=== PATIENT | female | born 1950 | race Hispanic/Latino ===

== ENCOUNTER 2018-05-01 07:49 | Day surgery (SDC) | payer MEDICARE, OTHER ==
[2018-03-06 12:36] VITALS: PULSE 69; BMI 36.8
--- NOTE | 2018-05-01 10:13 | CP.SDSHP ---
Same Day Surgery H & P - History Proposed Procedure: US guided paracentesis Pre-Op Diagnosis: Ascites, cirrhosis - Allergies Allergies: Allergies No Known Allergies Allergy (Verified 03/06/18 13:35) - Physical Exam Vital Signs: Vital Signs 05/01/18 08:19 Temperature 97.4 F L Pulse Rate 105 H Respiratory 20 Rate Blood Pressure 138/80 O2 Sat by Pulse 99 Oximetry Mental Status: Alert & Oriented x3 Neuro: WNL Heart: WNL - {Optional Preform as Required} Abdomen: Other (distended, non tender) - Impression Impression: Pt with severe ascites referred for paracentesis. Plan US guided paracentesis. Pt. Evaluated Today:Candidate for Anesthesia & Procedure: No Short Stay Discharge - Short Stay Discharge Admitting Diagnosis/Reason for Visit: DX:CIRRHOSIS,ASCITES Disposition: HOME/ ROUTINE
--- NOTE | 2018-05-01 10:18 | PCM.SURG1 ---
Surgeon's Initial Post Op Note - Surgeon's Notes Surgeon: Dick Mclaughlin MD Tank Cleaner: NONE Type of Anesthesia: Local Pre-Operative Diagnosis: Ascites, cirrhosis Operative Findings: US showed a large amount of ascites Post-Operative Diagnosis: Ascites, cirrhosis Operation Performed: US guided paracentesis Specimen/Specimens Removed: 4.3 liters of straw colored fluid Estimated Blood Loss: EBL {In ML}: 0 Blood Products Given: N/A Drains Used: No Drains Post-Op Condition: Good Date of Surgery/Procedure: 05/01/18 Time of Surgery/Procedure: 10:00
[2018-05-01 11:13] LABS: BODY FLUID TYPE PERITONEAL
[2018-05-01 11:56] LABS: BF GROSS APPEARANCE CLEAR (CLEAR); BODY FLUID MONO/MACROPHAGE 3 % (0-0); BODY FLUID TOTAL COUNT 100 (0-0)
[2018-05-01 12:05] VITALS: BP 142/52; PULSE 51; RESP 18; TEMP 97.1; O2SAT 100
--- NOTE | 2018-05-02 11:29 | US ---
Date of Procedure: 05/01/2018 PROCEDURE: Ultrasound-guided paracentesis, CPT 93085 Medications: 7 cc 1% Lidocaine HISTORY: Ascites, abdominal pain, cirrhosis TECHNIQUE: Following informed consent , the patient was placed supine on the stretcher and the site was marked. A limited abdominal ultrasound was performed that showed a large amount of intra-abdominal fluid. Procedural time out was called and the Pt's abdomen was marked and prepped and draped in the usual sterile fashion. Ultrasound-guided large volume paracentesis performed. A total of 4.3 liters of straw colored fluid was removed without complication. Fluid specimen was sent for culture, sensitivity, cytology and chemistries. IMPRESSION: Ultrasound-guided large volume paracentesis.
== END 2018-05-01 11:13 | disposition home or self-care (01) ==
LOC: C.SPRAD 07:49
PROVIDERS: ATTEND Radiology Vascular & Interventional Radiology
DX: K74.60 Unspecified cirrhosis of liver (principal); R18.8 Other ascites